=== PATIENT | male | born 1950 | race Caucasian/White ===

== ENCOUNTER 2021-05-11 16:55 | Emergency (ER) | payer OTHER ==
[~2021-05-11] VITALS: Ht 180.3 cm; Wt 78.0 kg
[2021-05-11 17:05] VITALS: BP 132/71
[2021-05-11] MEDS ORDERED: ONDANSETRON 2MG/ML, 2ML IVPush ONE (17:30)
[2021-05-11] MEDS ORDERED: SODIUM CHLORIDE FLUSH 10ML SYR IVF ONE (17:30)
[2021-05-11] MEDS ORDERED: CEFTRIAXONE 1,000 MG IM ONE (17:30)
[2021-05-11] MEDS ORDERED: BICILLIN-LA 2,400,000 UNITS/4 ML IM ONE (17:30)
[2021-05-11] MEDS ORDERED: MORPHINE SULFATE 4 MG/ML, 1ML IVPush PRN (17:30)
[2021-05-11 17:43] LABS: BASOPHILS % (AUTO) 1 % (0-1); EOSINOPHILS % (AUTO) 2 % (1-7); LYMPHOCYTES % (AUTO) 27 % (22-44); MEAN CORPUSCULAR HEMOGLOBIN 31.2 pg (27.5-34.5); MEAN CORPUSCULAR HGB CONC 34.5 g/dL (33.2-36.2); MEAN PLATELET VOLUME 6.8 fL (7.4-10.4); MONOCYTES % (AUTO) 11 % (2-9); NEUTROPHILS % (AUTO) 60 % (42-75); PLATELET COUNT 270 x10^3/uL (130-400); RED BLOOD COUNT 4.61 x10^6/uL (4.38-5.82); RED CELL DISTRIBUTION WIDTH 12.7 % (9.4-14.8)
[2021-05-11 17:49] LABS: ANION GAP 6 mmol/L (5-15); CHLORIDE 107 mmol/L (98-107); CREATININE 0.84 mg/dL (0.7-1.3)
[2021-05-11] MEDS ORDERED: CEFTRIAXONE 1,000 MG ONE (17:58)
[2021-05-11] MEDS ORDERED: MORPHINE SULFATE 4 MG/ML, 1ML ONE (17:58)
[2021-05-11] MEDS ORDERED: ONDANSETRON 2MG/ML, 2ML ONE (17:58)
--- NOTE | 2021-05-13 06:08 | NUR ---
THROUGHPUT RN: SPOKE WITH PT REGARDING TEST RESULTS AND TREATMENT. PT QUESTIONS ANSWERED APPROPRIATELY.
== END 2021-05-11 19:13 | disposition home or self-care (01) ==
LOC: ED 18:43
DX: N48.22 Cellulitis of corpus cavernosum and penis (principal)
CPT/HCPCS: 36415; 80048; 82040; 85025; 86592; 96372; 96374; 96375; 99284; J0561; J0696; J2270; J2405; 86780